=== PATIENT | female | born 1965 | race Caucasian/White ===

== ENCOUNTER 2020-05-12 07:50 | Day surgery (SDC) | payer OTHER ==
[~2020-05-12] VITALS: Ht 165.1 cm; Wt 73.5 kg
[2020-05-12 08:43] VITALS: BP 136/75
[2020-05-12 17:53] VITALS: BP 109/59
== END 2020-05-12 17:40 | disposition home or self-care (01) ==
LOC: DS 07:50 → OR 12:00 → DS 12:00
PROVIDERS: ATTEND Surgery
DX: D05.11 Intraductal carcinoma in situ of right breast (principal); N63.11 Unspecified lump in the right breast, upper outer quadrant; Z20.828 Contact with and (suspected) exposure to other viral communicable diseases
CPT/HCPCS: 77065; 88329; 88344; 88361; J0690; J1170; J1885; J2001; J2250; J2405; J2765; J3010; J3490; Q9968; U0003

== ENCOUNTER 2020-06-27 06:16 | Day surgery (SDC) | payer OTHER ==
[~2020-06-27] VITALS: Ht 167.6 cm; Wt 72.6 kg
[2020-06-27 07:08] VITALS: BP 118/71
[2020-06-27 16:11] VITALS: BP 120/73
== END 2020-06-27 15:55 | disposition home or self-care (01) ==
LOC: DS 06:16 → OR 09:00 → DS 15:55
PROVIDERS: ATTEND Surgery
DX: C50.411 Malignant neoplasm of upper-outer quadrant of right female breast (principal); E03.9 Hypothyroidism, unspecified; E66.3 Overweight; Z68.25 Body mass index [BMI] 25.0-25.9, adult
CPT/HCPCS: A4301; J0690; J1644; J2001; J3010; J3490